=== PATIENT | male | born 1985 | race American Indian/Alaskan Native ===

== ENCOUNTER 2019-05-05 01:55 | Emergency (ER) | payer SELFPAY ==
[2019-05-05 04:56] LABS: Basophils % (Auto) 0.2 % (0.0-1.8); Hematocrit 44.8 % (35.5-45.6); Hemoglobin 14.8 gm/dl (11.8-15.2); Lymphocytes # (Auto) 1.1 K/mm3 (1.2-5.4); Mean Corpuscular HGB Conc 33 % (32-34); Mean Corpuscular Volume 89 fl (84-94); Monocytes # (Auto) 0.8 K/mm3 (0.0-0.8); Monocytes % (Auto) 5.1 % (0.0-7.3); Platelet Count 315 K/mm3 (140-440); Red Blood Count 5.05 M/mm3 (3.65-5.03); Red Cell Distribution Width 15.5 % (13.2-15.2)
[2019-05-05 05:13] LABS: BUN/Creatinine Ratio 12; Blood Urea Nitrogen 11 mg/dL (9-20); Calcium 9.3 mg/dL (8.4-10.2)
[2019-05-05 05:14] LABS: Alanine Aminotransferase 21 units/L (7-56); Albumin 5.2 g/dL (3.9-5); Hemolysis Index 10
[2019-05-05] MEDS ORDERED: THIAMINE 100 MG, FOLIC ACID 1 MG, MULTIPLE VITAMIN INJ, ADULT 10 ML in SODIUM CHLORIDE ... IV ONE (05:18)
--- NOTE | 2019-05-05 06:06 | XRay Report ---
CHEST 1 VIEW INDICATION: syncope, leukocytosis. COMPARISON: None FINDINGS: Support devices: None. Heart: Within normal limits. Lungs/Pleura: No acute air space or interstitial disease. Additional findings: None. IMPRESSION: 1. No acute findings. Signer Name: Enzo Solano MD Signed: 05/05/2019 6:02 AM Workstation Name: [id number]
--- NOTE | 2019-05-05 06:37 | Cat Scan Report ---
CT head without contrast INDICATION : Syncope episode, New Onset, No trauma to head.. TECHNIQUE: Axial imaging performed from the skull apex through the skull base without the use of con trast. All CT scans at this location are performed using CT dose reduction for ALARA by means of aut omated exposure control. COMPARISON: None FINDINGS: Parenchyma: No acute intracranial hemorrhage or parenchymal abnormality. Ventricles: Ventricles are normal in size and appear symmetric. Soft tissues: Soft tissues including the orbits appear normal. Bones: No acute osseous abnormality. Sinuses: Sinuses and mastoid air cells are clear. IMPRESSION: No acute abnormality. Signer Name: Enzo Solano MD Signed: 05/05/2019 6:33 AM Workstation Name: [id number]
--- NOTE | 2019-05-05 06:47 | Emergency Department Report ---
HPI - General Chief Complaint: Alcohol Time Seen by Provider: 05/05/19 06:00 - HPI HPI: 33-year-old -Turkish male presents to the emergency department via EMS after he passed out on a [place] train. Patient says he got off work about 11:30 PM and started drinking. He says that he remembers getting onto the train and then "the police were there because I blacked out." Patient does admit to drinking daily. He denies any illicit drug use. Currently the patient is awake and alert with no significant complaints. He otherwise denies any other past medical history. Patient says that he has passed out one time previously but it was due to the heat at that time. ED Past Medical Hx - Past Medical History Previous Medical History?: No - Surgical History Past Surgical History?: No - Social History Smoking Status: Current Every Day Smoker Substance Use Type: Alcohol ED Review of Systems ROS: Stated complaint: ETOH Other details as noted in HPI Comment: All other systems reviewed and negative Constitutional: denies: chills, fever Eyes: denies: eye pain, vision change ENT: denies: ear pain, throat pain Respiratory: denies: cough, shortness of breath Cardiovascular: syncope. denies: chest pain Gastrointestinal: denies: abdominal pain, vomiting Genitourinary: denies: dysuria, discharge Musculoskeletal: denies: back pain, arthralgia Skin: denies: rash, lesions Neurological: denies: numbness, paresthesias Physical Exam - Physical Exam Vital Signs: Vital Signs 05/05/19 05/05/19 05/05/19 02:05 03:30 04:30 Temperature 97.7 F Pulse Rate 98 H 91 H 85 Respiratory 19 13 12 Rate Blood Pressure 143/79 149/70 150/88 Blood Pressure 143/79 [Left] O2 Sat by Pulse 95 99 Oximetry 05/05/19 05/05/19 05:30 05:45 Temperature Pulse Rate 87 83 Respiratory 12 12 Rate Blood Pressure 150/85 150/90 Blood Pressure [Left] O2 Sat by Pulse Oximetry Physical Exam: GENERAL: The patient is well-developed well-nourished. HEENT: Normocephalic. Atraumatic. Patient has moist mucous membranes. EYES: Extraocular motions are intact. NECK: Supple. Trachea is midline. CHEST/LUNGS: Clear to auscultation. There is no respiratory distress noted. HEART/CARDIOVASCULAR: Regular. There is no tachycardia. There is no murmur. ABDOMEN: Abdomen is soft, nontender. Patient has normal bowel sounds. There is no abdominal distention. SKIN:Skin is warm and dry. . NEURO: The patient is awake, alert, and oriented. The patient is cooperative. The patient has no focal neurologic deficits. Normal speech. Cranial nerves II through XII grossly intact. MUSCULOSKELETAL: There is no tenderness or deformity. There is no limitation range of motion. There is no evidence of acute injury. ED Course Vital Signs 05/05/19 05/05/19 05/05/19 02:05 03:30 04:30 Temperature 97.7 F Pulse Rate 98 H 91 H 85 Respiratory 19 13 12 Rate Blood Pressure 143/79 149/70 150/88 Blood Pressure 143/79 [Left] O2 Sat by Pulse 95 99 Oximetry 05/05/19 05/05/19 05:30 05:45 Temperature Pulse Rate 87 83 Respiratory 12 12 Rate Blood Pressure 150/85 150/90 Blood Pressure [Left] O2 Sat by Pulse Oximetry ED Medical Decision Making - Lab Data Result diagrams: 05/05/19 04:34 05/05/19 04:34 - EKG Data -: EKG Interpreted by Me EKG shows normal: sinus rhythm, axis, intervals, QRS complexes, ST-T waves Rate: normal - EKG Data When compared to previous EKG there are: previous EKG unavailable Interpretation: normal EKG - Radiology Data Radiology results: report reviewed, image reviewed interpreted by me: Chest x-ray does not show any pleural effusions, pneumonia, pneumothorax, focal consolidation, or any other acute process. CT head without contrast INDICATION : Syncope episode, New Onset, No trauma to head.. TECHNIQUE: Axial imaging performed from the skull apex through the skull base without the use of contrast. All CT scans at this location are performed using CT dose reduction for ALARA by means of automated exposure control. COMPARISON: None FINDINGS: Parenchyma: No acute intracranial hemorrhage or parenchymal abnormality. Ventricles: Ventricles are normal in size and appear symmetric. Soft tissues: Soft tissues including the orbits appear normal. Bones: No acute osseous abnormality. Sinuses: Sinuses and mastoid air cells are clear. IMPRESSION: No acute abnormality. - Medical Decision Making This patient presents after having a syncopal episode late last night/early this morning. Since my initial examination the patient has been awake, alert, oriented. He does not have any focal, motor or sensory deficits and his cranial nerves are intact. A CT scan of the head without contrast was done that does not show any bleed, shift, mass, ischemia, or any other acute process. His labs have been mostly unremarkable except for a mild leukocytosis, and a urine drug screen positive for marijuana and opiates. The patient has been reevaluated multiple times of multiple hours and there has been no further syncopal episodes, seizure-like activity or any other neurological deficits. The patient originally said it was due to his drinking but his blood alcohol level was negative. He does admit to drinking daily and also taking some opiates recreationally. It is possible that the patient was having some type of withdrawal. Vital signs have been stable throughout his ED course including being afebrile. The patient says he is feeling well and asking for discharge home. He has been given referrals for primary care and instructed to return to the emergency department immediately with any worsening of his symptoms, any further episodes of passing out, or with any acute distress. - Differential Diagnosis substance abuse, vasovagal, orthostatic hypotension, dysrhythmia Critical Care Time: No Critical care attestation.: If time is entered above; I have spent that time in minutes in the direct care of this critically ill patient, excluding procedure time. ED Disposition Clinical Impression: History of alcohol dependence, Opiate use Syncope Qualifiers: Syncope type: unspecified Qualified Code(s): R55 - Syncope and collapse Disposition: DC-01 TO HOME OR SELFCARE Is pt being admited?: No Condition: Stable Instructions: Syncope (ED) Additional Instructions: Please follow up with a primary care physician in the next few days. Please avoid any further opiate use unless prescribed by a physician for a particular diagnosis or condition. Return to the emergency department immediately with any further episodes of passing out, development of chest pain or shortness of breath, development of any neurological symptoms, or with any acute distress. Referrals: LEE PARKS MD [Primary Care Provider] - 2-3 Days FELICIA MORA MD [Staff Physician] - 2-3 Days GUILLERMO YANEZ MD [Staff Physician] - 2-3 Days [facility] [Outside] - 2-3 Days Time of Disposition: 09:24
[2019-05-05 07:12] LABS: Bilirubin,Urine NEG (Negative); Blood,Urine SM (Negative); Color,Urine Yellow (Yellow); Mucus,Urine FEW /HPF; Urobilinogen,Urine < 2.0 mg/dL (<2.0)
[2019-05-05 07:24] LABS: Amphetamine Screen,Urine PRESUMPTIVE NEGATIVE; Benzodiazepines Screen,Urine PRESUMPTIVE NEGATIVE; Cocaine Screen,Urine PRESUMPTIVE NEGATIVE; Methadone Screen,Urine PRESUMPTIVE NEGATIVE
[2019-05-05 07:50] LABS: Cannabinoid Screen,Urine PRESUMPTIVE POSITIVE; Opiate Screen,Urine PRESUMPTIVE POSITIVE
[2019-05-05 09:14] VITALS: BP 147/77
== END 2019-05-05 09:37 | disposition home or self-care (01) ==
LOC: ED 01:55
DX: R55 Syncope and collapse (principal); F15.10 Other stimulant abuse, uncomplicated; F17.200 Nicotine dependence, unspecified, uncomplicated; Z79.899 Other long term (current) drug therapy
CPT/HCPCS: 36415; 70450; 71045; 80053; 80307; 81001; 83735; 85025; 85379; 93005; 93010; 96365; 96366; 99285; J3411; J7030; 80320; G0480